=== PATIENT | female | born 2000 | race Caucasian/White ===

== ENCOUNTER → 2022-02-16 | Outpatient (CLI) | payer BC ==
[~2022-02-16] MED LIST: CATHETER FLUSH 10 ML SYR IVP PRN
--- NOTE | 2022-02-16 14:39 | Diagnostic Imaging Report ---
RADIOPHARMACEUTICAL: 5.22mCi Tc-99m Choletec IV INDICATION: Generalized abdominal pain. COMPARISON: None available TECHNIQUE: Anterior dynamic imaging for 1 hour. Additional 60 minutes of imaging was obtained after the patient ingested an 8 ounce can of Ensure. FINDINGS: There is homogenous uptake throughout the liver. The gallbladder is visualized at 25minutes and small bowel at 15minutes. After CCK analog administration, there is abnormal contraction of the gallbladder with abnormally low calculated GBEF at 8%. IMPRESSION: Abnormally low gallbladder ejection fraction calculated to be 8%. This can be seen with biliary dyskinesia or chronic acalculous cholecystitis. No evidence of acute cholecystitis or common duct obstruction. Dictated by: Dictated on workstation # [id number]
== END ==
LOC: CARD 10:00
PROVIDERS: ATTEND Nurse Practitioner Family
DX: R10.11 Right upper quadrant pain (principal); R10.84 Generalized abdominal pain; R11.2 Nausea with vomiting, unspecified
CPT/HCPCS: 78227; A9537

== ENCOUNTER 2022-03-14 05:50 | Outpatient (CLI) | payer BC ==
[~2022-03-14] VITALS: Ht 162.5 cm; Wt 118.0 kg
[2022-03-16] MEDS ORDERED: DICY20TA PO (17:32)
[2022-03-16] MEDS ORDERED: BUPR300T43 PO (17:32)
[2022-03-16] MEDS ORDERED: ONDA-105 PO (17:32)
== END 2022-03-16 17:39 | disposition home or self-care (01) ==
LOC: PREOP 05:50
PROVIDERS: ATTEND Surgery
DX: Z01.818 Encounter for other preprocedural examination (principal)

== ENCOUNTER 2022-03-21 07:03 | Day surgery (SDC) | payer BC ==
[~2022-03-21] VITALS: Ht 162.5 cm; Wt 118.0 kg
[2022-03-21] VITALS (12 sets, daily range): BP systolic 114–140; BP diastolic 61–108
[~2022-03-21 07:03] MED LIST changes: +BUPR300T43 PO; -CATHETER FLUSH 10 ML SYR IVP PRN; +DICY20TA PO; +ONDA-105 PO
[2022-03-21] MEDS ORDERED: ceFAZolin 2 GM IV Premixed 50 ML IV ONE (07:15)
[2022-03-21] MEDS ORDERED: LIDOCAINE/EPI 2% 1:200,00 (XYLOCAINE) 20 ML VIAL ONE (07:23)
[2022-03-21] MEDS ORDERED: INDOCYANINE GREEN 25 MG (ICG) VIAL IV ONE (07:30)
[2022-03-21] MEDS ORDERED: SEVOFLURANE (ULTANE) 15 ML INHAL SOLN ONE ×2 (07:53→08:52)
[2022-03-21] MEDS ORDERED: ONDANSETRON 4 MG/2 ML (SDV) Z0FRAN ONE ×2 (07:53→12:32)
[2022-03-21] MEDS ORDERED: LIDOCAINE PF 2% 5 ML (XYLOCAINE) VIAL ONE (07:53)
[2022-03-21] MEDS ORDERED: MIDAZOLAM 2 MG/2 ML (VERSED) VIAL ONE (07:53)
[2022-03-21] MEDS ORDERED: fentaNYL INJ 100 MCG/2 ML AMP ONE (07:53)
[2022-03-21] MEDS ORDERED: proPOfol 200 MG/20 ML (DIPRIVAN) VIAL IV ONE (07:53)
[2022-03-21] MEDS ORDERED: MIDAZOLAM 2 MG/2 ML (VERSED) VIAL IV ONE (08:00)
[2022-03-21] MEDS ORDERED: LACTATED RINGERS 1,000 ML IV PRN (08:00)
--- NOTE | 2022-03-21 08:15 | Progress Note-Pre Operative ---
Pre-Operative Progress Note H&P Reviewed The H&P was reviewed, patient examined and no changes noted. Time Seen by Provider: 08:06 Date H&P Reviewed: Mar 21, 2022 Time H&P Reviewed: 08:06 Pre-Operative Diagnosis: Biliary Dyskinesia LACY CABELLO DO Mar 21, 2022 08:15
[2022-03-21] MEDS ORDERED: ROCURONIUM 50 MG/5 ML (ZEMURON) VIAL IV ONE (08:52)
[2022-03-21] MEDS ORDERED: NEOSTIGMINE (BLOXIVERZ ) 1 MG/1ML 10 ML VIAL ONE (09:11)
[2022-03-21] MEDS ORDERED: GLYCOPYRROLATE 0.2 MG/ML (ROBINUL) 2 ML VIAL ONE (09:12)
--- NOTE | 2022-03-21 09:18 | Progress Note-Post Operative ---
Post-Operative Progess Note Surgeon (s)/Clinical Training Coordinator (s) Surgeon LACY CABELLO DO Clinical Training Coordinator: Kat Pre-Operative Diagnosis Biliary Dyskinesia Post-Operative Diagnosis same Procedure & Operative Findings Date of Procedure 03/21/22 Procedure Performed/Findings Laparoscopic Cholecystectomy with ICG cholangiogram with Robot COMPLICATIONS: None. PROCEDURE: The patient was taken to the operating suite and was prepped and draped in sterile fashion. A surgical pause was performed. Just superior to the umbilicus, a 12 mm incision was made. Dissection was taken down to the fascia, which was then scored and grasped with a Jacqueline and the abdomen was then entered. A 0 Vicryl suture was placed in a [id number] fashion and a Agosto trocar was placed and secured. Pneumoperitoneum was achieved. Next three 8mm Robotic trochars were placed; one on the right side of umbilicus and two on the left. The robot was then docked and the gallbladder was then grasped and elevated with the far left grasper and taken in the superior direction. Grasped the gallbladder at Chairez's pouch and pulled in the infero-lateral direction. Able to easily visualize the cystic duct and cystic artery; which were then dissected out. Clip was placed on the proximal and two on the distal portion of the cystic duct. Used the ICG to perform cholangiogram and did not see any obstruction, we were well away from the common hepatic and common bile duct. Clips were then placed on proximal portion of the cystic artery and distal portion; both duct and artery were then transected. Hook cautery was used to dissect the gallbladder from the gallbladder fossa achieving hemostasis. The gallbladder was placed in an Endobag and removed through the 12 mm trocar site. The abdomen was then reinspected and there were no signs of active bleeding. Hemostasis had been achieved. The 12 mm fascial defect was then closed with 0 Vicryl suture that had been placed in a [id number] fashion. The abdomen was then desufflated, the trocars were removed. The abdomen was then washed and dried. The skin was then closed using 4-0 Monocryl in a subcuticular fashion. The abdomen was washed and dried and Skin Affix was place over incisions. Patient tolerated the procedure well without any complications and was taken to the recovery room in stable condition. Dr. Stephens assisted on this case helping to make incisions, close incisions, pass instruments and take the gallbladder out. Anesthesia Type GET Estimated Blood Loss Estimated blood loss (mL): scant Specimens/Packing Specimens Removed GB and contents LACY CABELLO DO Mar 21, 2022 09:18
[2022-03-21] MEDS ORDERED: ACHD5005 PO (09:19)
--- NOTE | 2022-03-21 09:20 | Discharge Inst-Surgical ---
Discharge Inst-Surgical Depart Medication/Instructions New, Converted or Re-Newed RX: Transmitted to Pharmacy Patient Instructions Follow up Appt: Make appointment for 1 week. [phone] Instructions: No lifting greater than 20 pounds. No strenuous activity. May shower in 24 hours, no tub bath or soaking. Use incentive spirometer at home as directed. No Smoking Skin/Wound Care: May remove bandages in am. You need to leave the Dermabond on incision it will fall off on it's own. Symptoms to Report: Appetite Changes, Extremity Discoloration, Numbness/Tingling, Swelling Increased, Bleeding Excessive, Eyesight Changes, Pain Increased, Urine Color Change, Constipation(Persistent), Fever over 101 degree F, Pain/Pressure in chest, Urinating Difficulty, Cough Up/Vomit Blood, Heart Beat Irreg/Pounding, Pain/Pressure in jaw, Cramps in feet or legs, Lightheadedness, Pain/Pressure in shoulder, Diarrhea(Persistent), Memory Changes Suddenly, Questions/Concerns, Weight gain consecutive days, Dizziness/Fainting, Nausea/Vomiting, Shortness of Breath, Weight gain over 2 pounds If questions or concerns contact your physician Or seek help at emergency department. Activity Activity as Tolerated: Yes Activity Instructions: Avoid Stress to Incision Driving Instructions: No Driving/Refer to Diet Discharge Diet: Avoid Fatty Foods, Low Fat/Low Cholesterol Diet After 24 Hours: Clear Liquid if Nauseous If Any Problems/Questions/Issu: Contact Your Physician, Go to Emergency Room Skin/Wound Care Infection Signs and Symptoms: Increased Redness, Foul Odor of Wound, Increased Drainage, Skin Itchy or Has a Rash, Increased Swelling, Temperature Above 101 F Wound Care Comment: Heating pad to shoulder or neck tonight for pain Bathing Instructions: Shower Stitches/Nessa/Dermabond Dis: Dermabond Ice Pack: Ice On and Off Site LACY CABELLO DO Mar 21, 2022 09:20
[2022-03-21] MEDS ORDERED: MEPERIDINE (DEMEROL) INJ 50 MG/ML IVP ONE (09:30)
[2022-03-21] MEDS ORDERED: fentaNYL INJ 100 MCG/2 ML AMP IVP ONE (09:30)
[2022-03-21] MEDS ORDERED: ONDANSETRON 4 MG/2 ML (SDV) Z0FRAN IVP PRN (09:30)
[2022-03-21] MEDS ORDERED: morphine INJ 10 MG/ML 1ML (SYR OR VIAL) IVP ONE (09:30)
--- NOTE | 2022-03-21 09:31 | Anesthesia-General Post-Op ---
General Patient Condition Mental Status/LOC: Same as Preop Cardiovascular: Satisfactory Nausea/Vomiting: Absent Respiratory: Satisfactory Pain: Controlled Complications: Absent Post Op Complications Complications None Follow Up Care/Instructions Patient Instructions None needed. Anesthesia/Patient Condition Patient Condition Patient is doing well, no complaints, stable vital signs, no apparent adverse anesthesia problems. No complications reported per nursing. JUSTYN JONES CRNA Mar 21, 2022 09:31
[2022-03-21] MEDS ORDERED: PROMETHAZINE INJ 25 MG/ML (PHENERGAN) AMP ONE (10:12)
[2022-03-21] MEDS ORDERED: PROMETHAZINE INJ 25 MG/ML (PHENERGAN) AMP IVP ONE (10:15)
[2022-03-21] MEDS ORDERED: HYDROcodone/APAP 5 MG/325 MG (LORTAB) TAB PO ONE (12:15)
[2022-03-21] MEDS ORDERED: HYDROcodone/APAP 5 MG/325 MG (LORTAB) TAB ONE (12:22)
[2022-03-21] MEDS ORDERED: ONDANSETRON 4 MG/2 ML (SDV) Z0FRAN IVP ONE (12:45)
== END 2022-03-21 14:50 | disposition home or self-care (01) ==
LOC: SDC 07:03
PROVIDERS: ATTEND Surgery
DX: K82.8 Other specified diseases of gallbladder (principal); K81.1 Chronic cholecystitis
CPT/HCPCS: 84703; 87081

== ENCOUNTER → 2022-04-03 | Outpatient (CLI) | payer BC ==
[~2022-04-03] MED LIST changes: +ACHD5005 PO
[2022-04-03 16:24] LABS: BASOPHILS # (AUTO) 0.1 10^3/uL (0.0-0.1); BASOPHILS % (AUTO) 1 % (0-10); EOSINOPHILS # (AUTO) 0.4 10^3/uL (0.0-0.3); EOSINOPHILS % (AUTO) 4 % (0-10); HEMATOCRIT 43 % (35-52); HEMOGLOBIN 14.3 g/dL (11.5-16.0); LYMPHOCYTES # (AUTO) 2.7 10^3/uL (1.0-4.0); LYMPHOCYTES % (AUTO) 28 % (12-44); MEAN CORPUSCULAR HEMOGLOBIN 31 pg (25-34); MEAN CORPUSCULAR HGB CONC 33 g/dL (32-36); MEAN CORPUSCULAR VOLUME 93 fL (80-99); MEAN PLATELET VOLUME 9.2 fL (9.0-12.2); MONOCYTES # (AUTO) 0.5 10^3/uL (0.0-1.0); MONOCYTES % (AUTO) 5 % (0-12); NEUTROPHILS # (AUTO) 6.1 10^3/uL (1.8-7.8); NEUTROPHILS % (AUTO) 63 % (42-75); PLATELET COUNT 237 10^3/uL (130-400); WHITE BLOOD COUNT 9.7 10^3/uL (4.3-11.0)
[2022-04-03 16:26] LABS: BILIRUBIN,URINE NEGATIVE (NEGATIVE); CLARITY,URINE CLEAR; COLOR,URINE YELLOW; GLUCOSE, URINE (UA) NEGATIVE (NEGATIVE); KETONES,URINE NEGATIVE (NEGATIVE); LEUKOCYTE ESTERASE ,URINE NEGATIVE (NEGATIVE); NITRITE,URINE NEGATIVE (NEGATIVE); PH,URINE 5.5 (5-9); PROTEIN,URINE NEGATIVE (NEGATIVE)
[2022-04-03 16:34] LABS: ALBUMIN 4.5 GM/DL (3.2-4.5)
[2022-04-03 16:35] LABS: POTASSIUM 4.2 MMOL/L (3.6-5.0)
[2022-04-03 16:36] LABS: CALCIUM 9.8 MG/DL (8.5-10.1)
[2022-04-03 16:37] LABS: TOTAL PROTEIN 7.9 GM/DL (6.4-8.2)
[2022-04-03 16:39] LABS: BILIRUBIN,TOTAL 0.6 MG/DL (0.1-1.0)
[2022-04-03 16:41] LABS: CREATININE SERUM 0.82 MG/DL (0.60-1.30)
[2022-04-03 16:52] LABS: BACTERIA,URINE MODERATE /HPF; WBC,URINE 0-2 /HPF
== END ==
LOC: LAB 16:03
PROVIDERS: ATTEND Surgery
DX: R10.32 Left lower quadrant pain (principal)
CPT/HCPCS: 36415; 80053; 81000; 85025; 87088

== ENCOUNTER 2022-05-07 14:06 | Emergency (ER) | payer BC ==
[~2022-05-07] VITALS: Ht 162.5 cm; Wt 117.9 kg
[2022-05-07] MEDS ORDERED: morphine INJ 10 MG/ML 1ML (SYR OR VIAL) IVP STA (14:25)
[2022-05-07] MEDS ORDERED: NS IV 1000 ML 1,000 ML IV STA (14:25)
--- NOTE | 2022-05-07 14:28 | ED Abdominal Pain ---
General Chief Complaint: Abdominal/GI Problems Stated Complaint: ABD PAIN,N/V,DIARRHEA Nursing Triage Note: PT AMB TO [facility] 6 WITH FATHER. PT STATED THAT SHE HAS HAD RIGHT LOWER QUAD PAIN SINCE SATURDAY. PT STATED THAT SHE HAS HAD NAUSEA AND VOMITING OFF AND ON SINCE HER GALLBLADDER SURGERY IN FEBRUARY. Source of Information: Patient Exam Limitations: No Limitations History of Present Illness Date Seen by Provider: May 07, 2022 Time Seen by Provider: 14:12 Initial Comments 21-year-old female with no pertinent past medical history coming in due to right lower quadrant abdominal pain is been going on since Saturday. The pain is constant, moderate, sharp. Does not radiate anywhere. Has associated nausea and nonbloody nonbilious vomiting. Had an episode of nonbloody diarrhea this morning. Did have something to drink today which did not change the pain, otherwise last ate a meal yesterday. Had gallbladder surgery in February and she says the pain was completely different than this. No fever that she knows of. Denies being around anyone sick. She is otherwise denying any other acute complaints. Allergies and Home Medications Allergies Coded Allergies: adhesive tape (Unverified Allergy, Severe, Rash, 03/16/22) Patient Home Medication List Home Medication List Reviewed: Yes Bupropion HCl (Wellbutrin Xl) 300 Mg Tab.er.24h, 300 MG PO DAILY, (Reported) Entered as Reported by: KAREN TAO on 03/16/22 173 Dicyclomine HCl (Dicyclomine HCl) 20 Mg Tablet, 20 MG PO TID, (Reported) Entered as Reported by: KAREN TAO on 03/16/22 173 Hydrocodone Bit/Acetaminophen (HYDROcodone/APAP 5 MG/325 MG TAB) 1 Tab Tab, 1 TAB PO Q8H PRN for PAIN-MODERATE (5-7) Prescribed by: LACY CABELLO on 03/21/22 0919 Ondansetron HCl (Ondansetron HCl) 4 Mg Tablet, 4 MG PO UD, (Reported) Entered as Reported by: KAREN TAO on 03/16/22 173 Promethazine HCl (Promethazine Tablet) 25 Mg Tablet, 25 MG PO Q6H PRN for NAUSEA/VOMITING Prescribed by: MIRANDA CLEMENS on 05/07/22 2232 Review of Systems Review of Systems Constitutional: No fever EENTM: No Blurred Vision Respiratory: Denies Cough Cardiovascular: Denies Chest Pain Gastrointestinal: Abdominal Pain, Diarrhea, Nausea, Vomiting Genitourinary: No Symptoms Reported Musculoskeletal: no symptoms reported Skin: no symptoms reported Psychiatric/Neurological: No Symptoms Reported Endocrine: No Symptoms Reported Hematologic/Lymphatic: No Symptoms Reported All Other Systems Reviewed Negative Unless Noted: Yes Past Drkzkfm-Hweonk-Haznch Hx Patient Social History Tobacco Use?: No Substance use?: No Alcohol Use?: No Pt feels they are or have been: Unable to obtain Immunizations Up To Date Influenza Vaccine Up-to-Date: Yes; Up-to-Date First/Initial COVID19 Vaccinat: 2020 Second COVID19 Vaccination Sven: 2020 Third COVID19 Vaccination Date: 2020 Seasonal Allergies Seasonal Allergies: Yes Past Medical History Surgeries: Yes Tonsillectomy Respiratory: No Cardiac: No Neurological: No Genitourinary: No Gastrointestinal: Yes Gall Bladder Disease Musculoskeletal: No Endocrine: No HEENT: Yes (WEARS GLASSES AND CONTACT LENS) Cancer: No Psychosocial: Yes Anxiety, Depression Integumentary: No Blood Disorders: No Physical Exam Vital Signs Vital Signs - First Documented 05/07/22 14:15 Temp 36.6 Pulse 92 Resp 14 B/P (MAP) 133/83 (100) Pulse Ox 97 O2 Delivery Room Air Capillary Refill : Less Than 3 Seconds Height/Weight/BMI Height: '" Weight: lbs. oz. kg; 44.00 BMI Method: General Appearance: WD/WN, no apparent distress HEENT: PERRL/EOMI, normal ENT inspection, pharynx normal Neck: non-tender, full range of motion, supple, normal inspection Respiratory: chest non-tender, lungs clear, normal breath sounds, no respiratory distress, no accessory muscle use Cardiovascular: regular rate, rhythm, no edema, no murmur Gastrointestinal: normal bowel sounds, soft; No distended, No guarding, No rebound; tenderness Extremities: normal range of motion, non-tender, normal inspection, no pedal edema, no calf tenderness, normal capillary refill Back: normal inspection, no CVA tenderness Neurologic/Psychiatric: no motor/sensory deficits, alert, normal mood/affect Skin: normal color, warm/dry Lymphatic: no adenopathy Progress/Results/Core Measures Results/Orders Lab Results Laboratory Tests Test 8/8/22 14:45 Range/Units White Blood Count 9.1 4.3-11.0 10^3/uL Red Blood Count 4.61 3.80-5.11 10^6/uL Hemoglobin 14.3 11.5-16.0 g/dL Hematocrit 43 35-52 % Mean Corpuscular Volume 93 80-99 fL Mean Corpuscular Hemoglobin 31 25-34 pg Mean Corpuscular Hemoglobin Concent 33 32-36 g/dL Red Cell Distribution Width 12.3 10.0-14.5 % Platelet Count 254 130-400 10^3/uL Mean Platelet Volume 9.0 9.0-12.2 fL Immature Granulocyte % (Auto) 0 % Neutrophils (%) (Auto) 67 42-75 % Lymphocytes (%) (Auto) 23 12-44 % Monocytes (%) (Auto) 5 0-12 % Eosinophils (%) (Auto) 3 0-10 % Basophils (%) (Auto) 1 0-10 % Neutrophils # (Auto) 6.1 1.8-7.8 10^3/uL Lymphocytes # (Auto) 2.1 1.0-4.0 10^3/uL Monocytes # (Auto) 0.5 0.0-1.0 10^3/uL Eosinophils # (Auto) 0.3 0.0-0.3 10^3/uL Basophils # (Auto) 0.1 0.0-0.1 10^3/uL Immature Granulocyte # (Auto) 0.0 0.0-0.1 10^3/uL Sodium Level 141 135-145 MMOL/L Potassium Level 4.1 3.6-5.0 MMOL/L Chloride Level 106 98-107 MMOL/L Carbon Dioxide Level 28 21-32 MMOL/L Anion Gap 7 5-14 MMOL/L Blood Urea Nitrogen 8 7-18 MG/DL Creatinine 0.82 0.60-1.30 MG/DL Estimat Glomerular Filtration Rate 105 BUN/Creatinine Ratio 10 Glucose Level 87 70-105 MG/DL Calcium Level 9.5 8.5-10.1 MG/DL Corrected Calcium 9.2 8.5-10.1 MG/DL Total Bilirubin 0.5 0.1-1.0 MG/DL Aspartate Amino Transf (AST/SGOT) 14 5-34 U/L Alanine Aminotransferase (ALT/SGPT) 23 0-55 U/L Alkaline Phosphatase 54 40-136 U/L Total Protein 7.8 6.4-8.2 GM/DL Albumin 4.4 3.2-4.5 GM/DL Lipase 23 8-78 U/L My Orders Orders - MIRANDA CLEMENS MD Urine Bedside (05/07/22 14:25) Cbc With Automated Diff (05/07/22 14:25) Comprehensive Metabolic Panel (05/07/22 14:25) Ct Abd/Pelv W (Appendicitis) (05/07/22 14:25) Ed Iv/Invasive Line Start (05/07/22 14:25) Lipase (05/07/22 14:25) Acetaminophen Tablet (Tylenol Tablet) (05/07/22 14:30) Morphine Injection (Morphine Injection (05/07/22 14:25) Ondansetron Injection (Zofran Injectio (05/07/22 14:30) Ns Iv 1000 Ml (Sodium Chloride 0.9%) (05/07/22 14:25) Iohexol Injection (Omnipaque 350 Mg/Ml 1 (05/07/22 15:30) Ns (Ivpb) (Sodium Chloride 0.9% Ivpb Bag (05/07/22 15:30) Ketorolac Injection (Toradol Injection) (05/07/22 15:45) Medications Given in ED Current Medications Medications Dose Ordered Sig/Miguel Route Start Time Stop Time Status Last Admin Dose Admin Acetaminophen 1,000 mg ONCE ONCE PO 05/07/22 14:30 05/07/22 14:31 DC 05/07/22 14:54 1,000 MG Iohexol 100 ml ONCE ONCE IV 05/07/22 15:30 05/07/22 15:31 DC 05/07/22 15:29 100 ML Ondansetron HCl 4 mg ONCE ONCE IVP 05/07/22 14:30 05/07/22 14:31 DC 05/07/22 14:57 4 MG Sodium Chloride 100 ml ONCE ONCE IV 05/07/22 15:30 05/07/22 15:31 DC 05/07/22 15:30 80 ML Vital Signs/I&O 05/07/22 14:15 Temp 36.6 Pulse 92 Resp 14 B/P (MAP) 133/83 (100) Pulse Ox 97 O2 Delivery Room Air Blood Pressure Mean: 100 Progress Progress Note : Progress Note 21-year-old female with above history coming in due to right lower quadrant abdominal pain. ABCs were intact and vitals were stable on presentation. She did have tenderness on exam but no signs of peritonitis. An IV was placed and basic labs were obtained including LFTs. These were unremarkable. test negative. She had a urinalysis at the clinic earlier today and they said it was negative for infection. CT abdomen pelvis negative for acute abnormalities. While working her up she did get IV morphine and Zofran as well as a liter of IV fluids for her symptoms. She is feeling better. I believe she is stable for discharge with outpatient follow-up. She was sent home with strict return precautions Diagnostic Imaging Diagonstic Imaging: CT Plain Films/CT/US/NM/MRI: abdomen, pelvis Comments NAME: ZAIN GOMEZ [facility] REC#: [id number] PT STATUS: REG ER : 2000 PHYSICIAN: MIRANDA CLEMENS MD ADMIT DATE: 05/07/22/ER Draft Date of Exam:05/07/22 CT ABD/PELV W (APPENDICITIS) PROCEDURE: CT abdomen and pelvis with contrast, rule out appendicitis. TECHNIQUE: Multiple contiguous axial images were obtained through the abdomen and pelvis after the administration of intravenous contrast. All CT scans use one or more of the following dose optimizing techniques: automated exposure control, MA and/or KvP adjustment based on patient size and exam type or iterative reconstruction. INDICATION: Right lower quadrant pain with nausea and vomiting. COMPARISON: No prior studies are available for comparison. Lung bases are clear. The liver is unremarkable. Gallbladder appears to be surgically absent. There is no biliary ductal dilatation. The pancreas and spleen are unremarkable. No adrenal mass is detected. No renal calculi or evidence of hydronephrosis is detected. The bowel loops are normal caliber. The appendix is visualized in the right lower quadrant and appears unremarkable. There is no CT evidence of acute appendicitis. No free fluid or fluid collection is seen. No inflammatory changes are identified. The bladder and uterus are unremarkable. Ovaries are unremarkable. IMPRESSION: Unremarkable CT of the abdomen and pelvis. There is no evidence of acute appendicitis or urinary tract obstruction. Dictated on workstation # [id number] Dict: 05/07/22 1541 Trans: 05/07/22 1548 ACB [id number] Interpreted by: SKYLER FIGUEROA MD Electronically signed by: Departure Impression Primary Impression: Vomiting and diarrhea Disposition: 01 HOME, SELF-CARE Condition: Stable Departure-Patient Inst. Decision time for Depature: 15:51 Referrals: NO,LOCAL PHYSICIAN (PCP) Primary Care Physician FIORELLA SYED APRN (Family) Primary Care Physician Patient Instructions: Diarrhea, Adult ED, Nausea and Vomiting, Adult ED Add. Discharge Instructions: Your labs look good and your CT is normal with no evidence of appendicitis or any other abnormality. You likely have something viral causing vomiting and diarrhea. This typically takes 3 to 5 days to pass. Nausea medicines were sent to your pharmacy. Focus on clear liquids and do not worry about eating for the next couple days until you are feeling better Scripts Promethazine HCl (Promethazine Tablet) 25 Mg Tablet 25 MG PO Q6H PRN for NAUSEA/VOMITING for 5 Days, #20 TAB Prov: MIRANDA CLEMENS MD 05/07/22 Work/School Note: Work Release Form Date Seen in the Emergency Department: May 07, 2022 Return to Work: May 08, 2022 Restrictions: Return-No Vomiting(24hrs) MIRANDA CLEMENS MD May 07, 2022 14:28
[2022-05-07] MEDS ORDERED: ONDANSETRON 4 MG/2 ML (SDV) Z0FRAN IVP ONE (14:30)
[2022-05-07] MEDS ORDERED: ACETAMINOPHEN 500 MG TAB (TYLENOL) PO ONE (14:30)
[2022-05-07 14:52] LABS: BASOPHILS # (AUTO) 0.1 10^3/uL (0.0-0.1); BASOPHILS % (AUTO) 1 % (0-10); EOSINOPHILS # (AUTO) 0.3 10^3/uL (0.0-0.3); EOSINOPHILS % (AUTO) 3 % (0-10); HEMATOCRIT 43 % (35-52); HEMOGLOBIN 14.3 g/dL (11.5-16.0); LYMPHOCYTES # (AUTO) 2.1 10^3/uL (1.0-4.0); LYMPHOCYTES % (AUTO) 23 % (12-44); MEAN CORPUSCULAR HEMOGLOBIN 31 pg (25-34); MEAN CORPUSCULAR HGB CONC 33 g/dL (32-36); MEAN CORPUSCULAR VOLUME 93 fL (80-99); MONOCYTES # (AUTO) 0.5 10^3/uL (0.0-1.0); MONOCYTES % (AUTO) 5 % (0-12); NEUTROPHILS # (AUTO) 6.1 10^3/uL (1.8-7.8); NEUTROPHILS % (AUTO) 67 % (42-75); PLATELET COUNT 254 10^3/uL (130-400); WHITE BLOOD COUNT 9.1 10^3/uL (4.3-11.0)
[2022-05-07 15:16] LABS: ALBUMIN 4.4 GM/DL (3.2-4.5)
[2022-05-07 15:17] LABS: POTASSIUM 4.1 MMOL/L (3.6-5.0)
[2022-05-07 15:18] LABS: CALCIUM 9.5 MG/DL (8.5-10.1)
[2022-05-07 15:19] LABS: TOTAL PROTEIN 7.8 GM/DL (6.4-8.2)
[2022-05-07 15:21] LABS: BILIRUBIN,TOTAL 0.5 MG/DL (0.1-1.0)
[2022-05-07 15:23] LABS: CREATININE SERUM 0.82 MG/DL (0.60-1.30)
[2022-05-07] MEDS ORDERED: IOHEXOL 350 MG/ML 100 ML (OMNIPAQUE 350) VIAL IV ONE (15:30)
[2022-05-07] MEDS ORDERED: NS 100 ML (IVPB) BAG IV ONE (15:30)
[2022-05-07] MEDS ORDERED: KETOROLAC 30 MG/ML VIAL IVP ONE (15:45)
--- NOTE | 2022-05-07 15:48 | Diagnostic Imaging Report ---
PROCEDURE: CT abdomen and pelvis with contrast, rule out appendicitis. TECHNIQUE: Multiple contiguous axial images were obtained through the abdomen and pelvis after the administration of intravenous contrast. All CT scans use one or more of the following dose optimizing techniques: automated exposure control, MA and/or KvP adjustment based on patient size and exam type or iterative reconstruction. INDICATION: Right lower quadrant pain with nausea and vomiting. COMPARISON: No prior studies are available for comparison. Lung bases are clear. The liver is unremarkable. Gallbladder appears to be surgically absent. There is no biliary ductal dilatation. The pancreas and spleen are unremarkable. No adrenal mass is detected. No renal calculi or evidence of hydronephrosis is detected. The bowel loops are normal caliber. The appendix is visualized in the right lower quadrant and appears unremarkable. There is no CT evidence of acute appendicitis. No free fluid or fluid collection is seen. No inflammatory changes are identified. The bladder and uterus are unremarkable. Ovaries are unremarkable. IMPRESSION: Unremarkable CT of the abdomen and pelvis. There is no evidence of acute appendicitis or urinary tract obstruction. Dictated by: Dictated on workstation # [id number]
[2022-05-07] MEDS ORDERED: PROM25TA14 PO (15:52)
[2022-05-07 16:10] VITALS: BP 107/78
== END 2022-05-07 16:10 | disposition home or self-care (01) ==
LOC: EDUNIT# 14:06 → ER 14:08
DX: R11.2 Nausea with vomiting, unspecified (principal); R19.7 Diarrhea, unspecified; R10.32 Left lower quadrant pain; Z32.02 Encounter for pregnancy test, result negative
CPT/HCPCS: 36415; 74177; 80053; 83690; 84703; 85025

== ENCOUNTER 2022-08-15 10:14 | Emergency (ER) | payer BC ==
[~2022-08-15] VITALS: Ht 162 cm; Wt 123.0 kg
[~2022-08-15 10:14] MED LIST changes: +PROM25TA14 PO
--- NOTE | 2022-08-15 11:07 | ED Psychosocial ---
General Chief Complaint: Psych/Social Disorder Stated Complaint: PSYCH EVAL Nursing Triage Note: Patient has arrived to ER with cc of years of depression and for months feeling suicidal. She reports that she has thought about wrecking her car for several months - the thought are becoming more persistiance. Source: patient Exam Limitations: no limitations History of Present Illness Date Seen by Provider: Aug 15, 2022 Time Seen by Provider: 10:50 Allergies and Home Medications Allergies Coded Allergies: adhesive tape (Unverified Allergy, Severe, Rash, 03/16/22) Patient Home Medication List Home Medication List Reviewed: Yes Bupropion HCl (Wellbutrin Xl) 300 Mg Tab.er.24h, 300 MG PO DAILY, (Reported) Entered as Reported by: KAREN TAO on 03/16/22 1732 Dicyclomine HCl (Dicyclomine HCl) 20 Mg Tablet, 20 MG PO TID, (Reported) Entered as Reported by: KAREN TAO on 03/16/22 1732 Hydrocodone Bit/Acetaminophen (HYDROcodone/APAP 5 MG/325 MG TAB) 1 Tab Tab, 1 TAB PO Q8H PRN for PAIN-MODERATE (5-7) Prescribed by: LACY CABELLO on 03/21/22 0919 Ondansetron HCl (Ondansetron HCl) 4 Mg Tablet, 4 MG PO UD, (Reported) Entered as Reported by: KAREN TAO on 03/16/22 1732 Promethazine HCl (Promethazine Tablet) 25 Mg Tablet, 25 MG PO Q6H PRN for NAUSEA/VOMITING Prescribed by: MIRANDA CLEMENS on 05/07/22 1552 Review of Systems Constitutional: no symptoms reported EENTM: no symptoms reported Respiratory: no symptoms reported Cardiovascular: no symptoms reported Gastrointestinal: no symptoms reported Genitourinary: no symptoms reported Musculoskeletal: no symptoms reported Skin: no symptoms reported Psychiatric/Neurological: Depressed Past Ekumxnr-Rcrkpq-Luxjpt Hx Patient Social History Tobacco Use?: No Use of E-Cig and/or Vaping dev: No Substance use?: No Alcohol Use?: No Immunizations Up To Date First/Initial COVID19 Vaccinat: 2020 Second COVID19 Vaccination Sven: 2020 Third COVID19 Vaccination Date: 2020 Seasonal Allergies Seasonal Allergies: Yes Past Medical History Surgeries: Yes Tonsillectomy Respiratory: No Cardiac: No Neurological: No Genitourinary: No Gastrointestinal: Yes Gall Bladder Disease Musculoskeletal: No Endocrine: No HEENT: Yes (WEARS GLASSES AND CONTACT LENS) Cancer: No Psychosocial: Yes Anxiety, Depression Integumentary: No Blood Disorders: No Family Medical History Reviewed Nursing Family Hx No Pertinent Family Hx Physical Exam Vital Signs - First Documented 08/15/22 08/15/22 10:52 20:00 Temp 36.7 Pulse 93 Resp 16 B/P (MAP) 129/84 (99) Pulse Ox 99 O2 Delivery Room Air Capillary Refill : Height, Weight, BMI Height: '" Weight: lbs. oz. kg; 46.00 BMI Method: General Appearance: WD/WN HEENT: PERRL/EOMI, normal ENT inspection, pharynx normal Neck: non-tender, supple, normal inspection Respiratory: chest non-tender, lungs clear, normal breath sounds, no respiratory distress, no accessory muscle use Cardiovascular: regular rate, rhythm, no edema, no gallop, no JVD, no murmur Gastrointestinal: normal bowel sounds, non tender, soft, no organomegaly, no pulsatile mass Extremities: normal range of motion, non-tender, normal inspection, no pedal edema, no calf tenderness Neurologic/Psychiatric: alert, normal mood/affect, oriented x 3 Appearance/Memory: appropriate appearance, appropriate insight Behavior/Eye Contact: cooperative, good eye contact, normal speech Thoughts/Hallucinations: normal thought pattern Skin: normal color, warm/dry Lymphatic: no adenopathy Progress/Results/Core Measures Results/Orders Lab Results Laboratory Tests Test 08/15/22 10:38 08/15/22 15:43 Range/Units White Blood Count 10.4 4.3-11.0 10^3/uL Red Blood Count 4.64 3.80-5.11 10^6/uL Hemoglobin 14.5 11.5-16.0 g/dL Hematocrit 43 35-52 % Mean Corpuscular Volume 92 80-99 fL Mean Corpuscular Hemoglobin 31 25-34 pg Mean Corpuscular Hemoglobin Concent 34 32-36 g/dL Red Cell Distribution Width 12.3 10.0-14.5 % Platelet Count 267 130-400 10^3/uL Mean Platelet Volume 9.4 9.0-12.2 fL Immature Granulocyte % (Auto) 0 % Neutrophils (%) (Auto) 72 42-75 % Lymphocytes (%) (Auto) 18 12-44 % Monocytes (%) (Auto) 6 0-12 % Eosinophils (%) (Auto) 4 0-10 % Basophils (%) (Auto) 1 0-10 % Neutrophils # (Auto) 7.5 1.8-7.8 10^3/uL Lymphocytes # (Auto) 1.8 1.0-4.0 10^3/uL Monocytes # (Auto) 0.6 0.0-1.0 10^3/uL Eosinophils # (Auto) 0.4 H 0.0-0.3 10^3/uL Basophils # (Auto) 0.1 0.0-0.1 10^3/uL Immature Granulocyte # (Auto) 0.0 0.0-0.1 10^3/uL Urine Color YELLOW Urine Clarity SL CLOUDY Urine pH 6.5 5-9 Urine Specific [place] 1.025 H 1.016-1.022 Urine Protein NEGATIVE NEGATIVE Urine Glucose (UA) NEGATIVE NEGATIVE Urine Ketones NEGATIVE NEGATIVE Urine Nitrite NEGATIVE NEGATIVE Urine Bilirubin NEGATIVE NEGATIVE Urine Urobilinogen 0.2 < = 1.0 MG/DL Urine Leukocyte Esterase NEGATIVE NEGATIVE Urine RBC (Auto) TRACE-I H NEGATIVE Urine RBC NONE /HPF Urine WBC RARE /HPF Urine Squamous Epithelial Cells 5-10 /HPF Urine Crystals NONE /LPF Urine Bacteria TRACE /HPF Urine Casts NONE /LPF Urine Mucus NEGATIVE /LPF Urine Culture Indicated NO Urine Test NEGATIVE NEGATIVE Sodium Level 138 135-145 MMOL/L Potassium Level 4.5 3.6-5.0 MMOL/L Chloride Level 102 98-107 MMOL/L Carbon Dioxide Level 24 21-32 MMOL/L Anion Gap 12 5-14 MMOL/L Blood Urea Nitrogen 15 7-18 MG/DL Creatinine 0.75 0.60-1.30 MG/DL Estimat Glomerular Filtration Rate 116 BUN/Creatinine Ratio 20 Glucose Level 94 70-105 MG/DL Calcium Level 9.4 8.5-10.1 MG/DL Corrected Calcium 8.5-10.1 MG/DL Total Bilirubin 0.3 0.1-1.0 MG/DL Aspartate Amino Transf (AST/SGOT) 15 5-34 U/L Alanine Aminotransferase (ALT/SGPT) 16 0-55 U/L Alkaline Phosphatase 68 40-136 U/L Total Protein 8.0 6.4-8.2 GM/DL Albumin 4.6 H 3.2-4.5 GM/DL Salicylates Level < 0.3 L 5.0-20.0 MG/DL Urine Opiates Screen NEGATIVE NEGATIVE Urine Oxycodone Screen NEGATIVE NEGATIVE Urine Methadone Screen NEGATIVE NEGATIVE Urine Propoxyphene Screen NEGATIVE NEGATIVE Acetaminophen Level < 10 L 10-30 UG/ML Urine Barbiturates Screen NEGATIVE NEGATIVE Ur Tricyclic Antidepressants Screen NEGATIVE NEGATIVE Urine Phencyclidine Screen NEGATIVE NEGATIVE Urine Amphetamines Screen NEGATIVE NEGATIVE Urine Methamphetamines Screen NEGATIVE NEGATIVE Urine Benzodiazepines Screen NEGATIVE NEGATIVE Urine Cocaine Screen NEGATIVE NEGATIVE Urine Cannabinoids Screen NEGATIVE NEGATIVE Serum Alcohol < 10 <10 MG/DL SARS-CoV-2 RNA (RT-PCR) Not Detected Not Detecte My Orders Orders - YFN RAE DO Ua Culture If Indicated (08/15/22 11:04) Cbc With Automated Diff (08/15/22 11:04) Comprehensive Metabolic Panel (08/15/22 11:04) Alcohol (08/15/22 11:04) Drug Screen Stat (Urine) (08/15/22 11:04) Acetaminophen (08/15/22 11:04) Salicylate (08/15/22 11:04) Ekg Tracing (08/15/22 11:04) Hcg,Qualitative Urine (08/15/22 13:24) Acetaminophen Tablet (Tylenol Tablet) (08/15/22 13:45) Covid 19 Inhouse Test (08/15/22 13:47) Isolation Central Supply Req (08/15/22 13:47) Medications Given in ED Current Medications Medications Dose Ordered Sig/Miguel Route Start Time Stop Time Status Last Admin Dose Admin Acetaminophen 1,000 mg ONCE ONCE PO 08/15/22 13:45 08/15/22 13:46 DC 08/15/22 13:52 1,000 MG Vital Signs/I&O 08/15/22 08/15/22 10:52 20:00 Temp 36.7 Pulse 93 69 Resp 16 16 B/P (MAP) 129/84 (99) 106/70 (82) Pulse Ox 99 98 O2 Delivery Room Air Blood Pressure Mean: 99 Departure Communication (Admissions) Patient has been calm and cooperative during emergency department stay. It was delayed finding placement however eventually she is transferred to [facility] voluntarily for further evaluation and treatment. Impression Primary Impression: Depression Qualified Codes: F32.A - Depression, unspecified Disposition: 02 XFER SHT-TRM HOSP Condition: Stable Admissions Decision to Admit Reason: Admit from ER (General) Departure-Patient Inst. Referrals: FIORELLA SYED APRN (PCP) Primary Care Physician [facility] (Family) Primary Care Physician Add. Discharge Instructions: All discharge instructions reviewed with patient and/or family. Voiced understanding. YFN RAE DO Aug 15, 2022 11:07
[2022-08-15 11:13] LABS: BASOPHILS # (AUTO) 0.1 10^3/uL (0.0-0.1); BASOPHILS % (AUTO) 1 % (0-10); BILIRUBIN,URINE NEGATIVE (NEGATIVE); CLARITY,URINE SL CLOUDY; COLOR,URINE YELLOW; EOSINOPHILS # (AUTO) 0.4 10^3/uL (0.0-0.3); EOSINOPHILS % (AUTO) 4 % (0-10); GLUCOSE, URINE (UA) NEGATIVE (NEGATIVE); HEMATOCRIT 43 % (35-52); HEMOGLOBIN 14.5 g/dL (11.5-16.0); KETONES,URINE NEGATIVE (NEGATIVE); LEUKOCYTE ESTERASE ,URINE NEGATIVE (NEGATIVE); LYMPHOCYTES # (AUTO) 1.8 10^3/uL (1.0-4.0); LYMPHOCYTES % (AUTO) 18 % (12-44); MEAN CORPUSCULAR HEMOGLOBIN 31 pg (25-34); MEAN CORPUSCULAR HGB CONC 34 g/dL (32-36); MEAN CORPUSCULAR VOLUME 92 fL (80-99); MEAN PLATELET VOLUME 9.4 fL (9.0-12.2); MONOCYTES # (AUTO) 0.6 10^3/uL (0.0-1.0); MONOCYTES % (AUTO) 6 % (0-12); NEUTROPHILS # (AUTO) 7.5 10^3/uL (1.8-7.8); NEUTROPHILS % (AUTO) 72 % (42-75); NITRITE,URINE NEGATIVE (NEGATIVE); PH,URINE 6.5 (5-9); PLATELET COUNT 267 10^3/uL (130-400); PROTEIN,URINE NEGATIVE (NEGATIVE); WHITE BLOOD COUNT 10.4 10^3/uL (4.3-11.0)
[2022-08-15 11:20] LABS: BACTERIA,URINE TRACE /HPF; WBC,URINE RARE /HPF
[2022-08-15 11:31] LABS: AMPHETAMINE SCREEN, URINE NEGATIVE (NEGATIVE); BARBITURATE SCREEN URINE NEGATIVE (NEGATIVE); BENZODIAZEPINES SCREEN URINE NEGATIVE (NEGATIVE); CANNABINOID SCREEN, URINE NEGATIVE (NEGATIVE); COCAINE SCREEN URINE NEGATIVE (NEGATIVE); METHADONE STAT NEGATIVE (NEGATIVE); OPIATE SCREEN URINE NEGATIVE (NEGATIVE); OXYCODONE STAT NEGATIVE (NEGATIVE); PROPOXYPHENE STAT NEGATIVE (NEGATIVE); TRICYCLIC ANTIDEPRESSANTS SCRE NEGATIVE (NEGATIVE)
[2022-08-15 11:39] LABS: POTASSIUM 4.5 MMOL/L (3.6-5.0); SODIUM 138 MMOL/L (135-145)
[2022-08-15 11:40] LABS: ALANINE AMINOTRANSFERASE 16 U/L (0-55); ALBUMIN 4.6 GM/DL (3.2-4.5); ALKALINE PHOSPHATASE 68 U/L (40-136); BILIRUBIN,TOTAL 0.3 MG/DL (0.1-1.0); BUN/CREATININE RATIO 20; CALCIUM 9.4 MG/DL (8.5-10.1); CARBON DIOXIDE 24 MMOL/L (21-32); CHLORIDE 102 MMOL/L (98-107); CREATININE SERUM 0.75 MG/DL (0.60-1.30); GFR ESTIMATED 116; GLUCOSE 94 MG/DL (70-105); SALICYLATE < 0.3 MG/DL (5.0-20.0)
[2022-08-15 11:41] LABS: ACETAMINOPHEN < 10 UG/ML (10-30)
[2022-08-15] MEDS ORDERED: ACETAMINOPHEN 500 MG TAB (TYLENOL) PO ONE (13:45)
[2022-08-15 21:35] VITALS: BP 106/70
== END 2022-08-15 21:36 | disposition short-term general hospital (02) ==
LOC: EDUNIT# 10:14 → ER FS 10:15
DX: F32.A Depression, unspecified (principal); Z20.822 Contact with and (suspected) exposure to COVID-19
CPT/HCPCS: 36415; 80053; 80306; 81000; 84703 ×2; 85025; 87636; 93005; 99284; G0480 ×3; 80320; 80329

== ENCOUNTER 2023-05-12 09:58 | Emergency (ER) | payer BC ==
[~2023-05-12] VITALS: Ht 162 cm; Wt 140.0 kg
[2023-05-12] MEDS ORDERED: KETOROLAC INJ 15 MG/ML VIAL IVP STA (10:12)
[2023-05-12] MEDS ORDERED: ONDANSETRON 4 MG/2 ML (SDV) Z0FRAN IVP STA (10:12)
[2023-05-12] MEDS ORDERED: NS IV 1000 ML 1,000 ML IV STA (10:12)
[2023-05-12 10:14] VITALS: BP 137/32
[2023-05-12 10:15] LABS: BASOPHILS # (AUTO) 0.1 10^3/uL (0.0-0.1); BASOPHILS % (AUTO) 1 % (0-10); EOSINOPHILS # (AUTO) 0.3 10^3/uL (0.0-0.3); EOSINOPHILS % (AUTO) 2 % (0-10); HEMATOCRIT 45 % (35-52); HEMOGLOBIN 14.9 g/dL (11.5-16.0); LYMPHOCYTES # (AUTO) 1.1 10^3/uL (1.0-4.0); LYMPHOCYTES % (AUTO) 9 % (12-44); MEAN CORPUSCULAR HEMOGLOBIN 31 pg (25-34); MEAN CORPUSCULAR HGB CONC 33 g/dL (32-36); MEAN CORPUSCULAR VOLUME 92 fL (80-99); MEAN PLATELET VOLUME 8.7 fL (9.0-12.2); MONOCYTES # (AUTO) 0.8 10^3/uL (0.0-1.0); MONOCYTES % (AUTO) 6 % (0-12); NEUTROPHILS # (AUTO) 10.6 10^3/uL (1.8-7.8); NEUTROPHILS % (AUTO) 82 % (42-75); PLATELET COUNT 254 10^3/uL (130-400); WHITE BLOOD COUNT 12.8 10^3/uL (4.3-11.0)
[2023-05-12 10:18] LABS: BILIRUBIN,URINE NEGATIVE (NEGATIVE); CLARITY,URINE CLEAR; COLOR,URINE YELLOW; GLUCOSE, URINE (UA) NEGATIVE (NEGATIVE); KETONES,URINE NEGATIVE (NEGATIVE); LEUKOCYTE ESTERASE ,URINE NEGATIVE (NEGATIVE); NITRITE,URINE NEGATIVE (NEGATIVE); PROTEIN,URINE NEGATIVE (NEGATIVE)
--- NOTE | 2023-05-12 10:19 | ED GI ---
General Chief Complaint: Abdominal/GI Problems Stated Complaint: LRQ PAIN; DIARRHEA; NAUSEA Source of Information: Patient, Old Records History of Present Illness Date Seen by Provider: May 12, 2023 Time Seen by Provider: 10:00 Initial Comments 22-year-old female presenting again with abdominal pain, nausea, diarrhea, vomiting. She states that she has had nausea vomiting and diarrhea ever since she had her gallbladder out over a year ago. She has had right lower quadrant and right flank pain intermittently since then as well. She has been evaluated for this previously. She comes in today because she states that her pain is so severe she cannot manage it anymore. Her symptoms this episode have been going on for over a week. She was seen last weekend at the [facility] clinic and states that he had a COVID test and urine test and they were both negative. She has not tried to check back with the clinic during the week. She states she has had some chills but no fever. She denies pain or burning with urination. She last had diarrhea earlier today. Timing/Duration: 1 Week Severity/Quality: Moderate, Sharp Location: RLQ, Flank (Right) Activities at Onset: None Modifying Factors: Worsens With Movement, Worsens With Palpation Associated Symptoms: No Back Pain, No Chest Pain, No Diaphoresis, No Fever/Chills, No Fatigue, No Headache, No Heartburn; Nausea/Vomiting; No Rash, No Shortness of Air, No Swelling/Mass in Abdomen, No Syncope, No Weakness Allergies and Home Medications Allergies Coded Allergies: adhesive tape (Unverified Allergy, Severe, Rash, 03/16/22) Patient Home Medication List Home Medication List Reviewed: Yes Bupropion HCl (Wellbutrin Xl) 300 Mg Tab.er.24h, 300 MG PO DAILY, (Reported) Entered as Reported by: KAREN TAO on 03/16/22 173 Dicyclomine HCl (Dicyclomine HCl) 20 Mg Tablet, 20 MG PO TID, (Reported) Entered as Reported by: KAREN TAO on 03/16/22 173 Dicyclomine HCl (Dicyclomine HCl) 10 Mg Capsule, 10 MG PO Q6H PRN for ABDOMINAL PAIN Prescribed by: EFRAÍN LEON on 05/12/23 1127 Hydrocodone Bit/Acetaminophen (HYDROcodone/APAP 5 MG/325 MG TAB) 1 Tab Tab, 1 TAB PO Q8H PRN for PAIN-MODERATE (5-7) Prescribed by: LACY CABELLO on 03/21/22 0919 Metoclopramide HCl (Metoclopramide HCl) 5 Mg Tablet, 5 MG PO Q8H PRN for NAUSEA/VOMITING Prescribed by: EFRAÍN LEON on 05/12/23 1127 Ondansetron HCl (Ondansetron HCl) 4 Mg Tablet, 4 MG PO UD, (Reported) Entered as Reported by: KAREN TAO on 03/16/22 1732 Promethazine HCl (Promethazine Tablet) 25 Mg Tablet, 25 MG PO Q6H PRN for NAUSEA/VOMITING Prescribed by: MIRANDA CLEMENS on 05/07/22 1552 Review of Systems Review of Systems Constitutional: chills; No fever EENTM: No Symptoms Reported Respiratory: No Symptoms Reported Cardiovascular: Palpitations Gastrointestinal: See HPI Genitourinary: Denies Burning, Denies Discharge; Flank Pain (right side) Musculoskeletal: no symptoms reported Skin: no symptoms reported Psychiatric/Neurological: No Symptoms Reported Endocrine: No Symptoms Reported Past Jnpaaox-Xwcwbq-Ahenoy Hx Patient Social History Tobacco Use?: No Use of E-Cig and/or Vaping dev: No Substance use?: No Alcohol Use?: No Immunizations Up To Date First/Initial COVID19 Vaccinat: 2020 Second COVID19 Vaccination Sven: 2020 Third COVID19 Vaccination Date: 2020 Seasonal Allergies Seasonal Allergies: Yes Past Medical History Surgery/Hospitalization HX: Cholecystectomy Surgeries: Yes Tonsillectomy Respiratory: No Cardiac: No Neurological: No Genitourinary: No Gastrointestinal: Yes Gall Bladder Disease Musculoskeletal: No Endocrine: No HEENT: Yes (WEARS GLASSES AND CONTACT LENS) Cancer: No Psychosocial: Yes Anxiety, Depression Integumentary: No Blood Disorders: No Family Medical History No Pertinent Family Hx Physical Exam Vital Signs Vital Signs - First Documented 05/12/23 10:14 Temp 36.8 Pulse 108 Resp 16 B/P (MAP) 137/32 (67) Pulse Ox 100 O2 Delivery Room Air Capillary Refill : Height/Weight/BMI Height: '" Weight: lbs. oz. 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, alert, oriented x 3 Skin: normal color, warm/dry Progress/Results/Core Measures Results/Orders Lab Results Laboratory Tests Test 05/12/23 10:03 05/12/23 10:09 Range/Units Urine Color YELLOW Urine Clarity CLEAR Urine pH 6.0 5-9 Urine Specific [place] 1.010 L 1.016-1.022 Urine Protein NEGATIVE NEGATIVE Urine Glucose (UA) NEGATIVE NEGATIVE Urine Ketones NEGATIVE NEGATIVE Urine Nitrite NEGATIVE NEGATIVE Urine Bilirubin NEGATIVE NEGATIVE Urine Urobilinogen 0.2 < = 1.0 MG/DL Urine Leukocyte Esterase NEGATIVE NEGATIVE Urine RBC (Auto) NEGATIVE NEGATIVE Urine RBC 0-2 /HPF Urine WBC NONE /HPF Urine Squamous Epithelial Cells 25-50 H /HPF Urine Crystals NONE /LPF Urine Bacteria TRACE /HPF Urine Casts NONE /LPF Urine Mucus NEGATIVE /LPF Urine Culture Indicated NO White Blood Count 12.8 H 4.3-11.0 10^3/uL Red Blood Count 4.87 3.80-5.11 10^6/uL Hemoglobin 14.9 11.5-16.0 g/dL Hematocrit 45 35-52 % Mean Corpuscular Volume 92 80-99 fL Mean Corpuscular Hemoglobin 31 25-34 pg Mean Corpuscular Hemoglobin Concent 33 32-36 g/dL Red Cell Distribution Width 12.2 10.0-14.5 % Platelet Count 254 130-400 10^3/uL Mean Platelet Volume 8.7 L 9.0-12.2 fL Immature Granulocyte % (Auto) 0 % Neutrophils (%) (Auto) 82 H 42-75 % Lymphocytes (%) (Auto) 9 L 12-44 % Monocytes (%) (Auto) 6 0-12 % Eosinophils (%) (Auto) 2 0-10 % Basophils (%) (Auto) 1 0-10 % Neutrophils # (Auto) 10.6 H 1.8-7.8 10^3/uL Lymphocytes # (Auto) 1.1 1.0-4.0 10^3/uL Monocytes # (Auto) 0.8 0.0-1.0 10^3/uL Eosinophils # (Auto) 0.3 0.0-0.3 10^3/uL Basophils # (Auto) 0.1 0.0-0.1 10^3/uL Immature Granulocyte # (Auto) 0.0 0.0-0.1 10^3/uL Sodium Level 138 135-145 MMOL/L Potassium Level 4.4 3.6-5.0 MMOL/L Chloride Level 102 98-107 MMOL/L Carbon Dioxide Level 23 21-32 MMOL/L Anion Gap 13 5-14 MMOL/L Blood Urea Nitrogen 11 7-18 MG/DL Creatinine 0.89 0.60-1.30 MG/DL Estimat Glomerular Filtration Rate 95 BUN/Creatinine Ratio 12 Glucose Level 104 70-105 MG/DL Calcium Level 9.5 8.5-10.1 MG/DL Corrected Calcium 9.1 8.5-10.1 MG/DL Total Bilirubin 0.5 0.1-1.0 MG/DL Aspartate Amino Transf (AST/SGOT) 28 5-34 U/L Alanine Aminotransferase (ALT/SGPT) 54 0-55 U/L Alkaline Phosphatase 70 40-136 U/L Total Protein 8.1 6.4-8.2 GM/DL Albumin 4.5 3.2-4.5 GM/DL Lipase 78 8-78 U/L My Orders Orders - EFRAÍN LEON MD Ua Culture If Indicated (05/12/23 10:02) Urine Bedside (05/12/23 10:02) Comprehensive Metabolic Panel (05/12/23 10:12) Lipase (05/12/23 10:12) Ed Iv/Invasive Line Start (05/12/23 10:12) Cbc With Automated Diff (05/12/23 10:12) Ct Abdomen/Pelvis W (05/12/23 10:12) Ns Iv 1000 Ml (Sodium Chloride 0.9%) (05/12/23 10:12) Ondansetron Injection (Zofran Injectio (05/12/23 10:12) Ketorolac Injection (Ketorolac Injection (05/12/23 10:12) Iohexol Injection (Omnipaque 350 Mg/Ml 1 (05/12/23 10:30) Received Contrast (Hold Metformin- Contr (05/12/23 10:30) Ns (Ivpb) 100 Ml (Sodium Chloride 0.9% 1 (05/12/23 10:30) Metoclopramide Injection (Reglan Injecti (05/12/23 11:28) Diphenhydramine Injection (Diphenhydram (05/12/23 11:28) Medications Given in ED Current Medications Medications Dose Ordered Sig/Miguel Route Start Time Stop Time Status Last Admin Dose Admin Iohexol 100 ml ONCE ONCE IV 05/12/23 10:30 05/12/23 10:31 DC 05/12/23 10:44 100 ML Sodium Chloride 100 ml ONCE ONCE IV 05/12/23 10:30 05/12/23 10:31 DC 05/12/23 10:44 80 ML Vital Signs/I&O 05/12/23 10:14 Temp 36.8 Pulse 108 Resp 16 B/P (MAP) 137/32 (67) Pulse Ox 100 O2 Delivery Room Air Progress Progress Note #1: Progress Note Potential diagnosis of colitis, diverticulitis, pyelonephritis, cystitis, ovarian cyst, gastroenteritis. Establish peripheral IV access and send labs for complete blood count, comprehensive metabolic profile, lipase, urinalysis, bedside urine test. Administer normal saline 1 L IV fluid bolus for hydration, Toradol 15 mg IV for pain, Zofran 4 mg IV for nausea and vomiting. Obtain a CT scan of the abdomen and pelvis with IV contrast to further evaluate her recurrent and chronic pain. Progress Note #2: Time: 10:54 Progress Note Labs show mild elevation of the white blood cell count to 12.6. The comprehensive metabolic profile did not show any acute electrolyte abnormalities. Her lipase was negative for pancreatitis. Her urinalysis was also negative for infection as she had a specific gravity of 1.010 and no nitrites or leukocyte Estrace. She did have a large number of epithelial cells to indicate contaminated specimen. On my personal review and interpretation of the CT scan of the abdomen pelvis with IV contrast I did not appreciate any acute abnormality. Progress Note #3: Time: 11:21 Progress Note I reviewed the radiologist report on the CT scan of the abdomen pelvis with IV contrast. They did not appreciate any acute process. She did have some motion artifact but they did not feel there was any findings for appendicitis or colitis or diverticulitis. She was requesting something additional for nausea and pain. Will try giving a dose of Reglan and try some Bentyl for abdominal pain and cramping. Encouraged follow-up with the clinic and she may need to have colonoscopy or additional testing beyond what is available in the emergency department to further evaluate her chronic issues since she had her gallbladder removed. When reviewing the findings with the patient she states that he did have a colonoscopy in June but did not find anything. She states that she had previously been on Bentyl prior to her gallbladder removal. She did not feel it was helpful at the time. Encouraged to try the medicine again and see if it any better now. Discharged on a few Reglan 5 mg p.o. 3 times daily x3 days and Bentyl 10 mg p.o. 4 times daily as needed abdominal pain. Patient reports that she did not have any significant improvement in her pain prior to discharge. Will defer further work-up with the clinic. Will avoid prescribing narcotics at this point since we did not find any severe findings on her CT scan and labs. I did not want to cause her to get constipated or have pain secondary to the narcotic. 1208 pharmacy called back with patient having Latuda as a chronic medication the metoclopramide would be contraindicated. It could cause extraparametal sy mptoms. We will change to Zofran ODT 4 mg p.o. every 6 hours as needed for nausea and vomiting. Diagnostic Imaging Diagonstic Imaging: CT Plain Films/CT/US/NM/MRI: abdomen, pelvis Comments [facility] [place], [place] NAME: ZAIN GOMEZ [employer] REC#: [id number] PT STATUS: REG ER : 2001 PHYSICIAN: EFRAÍN LEON MD ADMIT DATE: 05/12/23/ER FS Draft Date of Exam:05/12/23 CT ABDOMEN/PELVIS W PROCEDURE: CT abdomen and pelvis with contrast. TECHNIQUE: Multiple contiguous axial images were obtained through the abdomen and pelvis after administration of intravenous contrast. Auto Exposure Controls were utilized during the CT exam to meet ALARA standards for radiation dose reduction. All CT scans use one or more of the following dose optimizing techniques: automated exposure control, MA and/or KvP adjustment based on patient size and exam type or iterative reconstruction. INDICATION: 22-year-old female, right lower quadrant pain since earlier in the morning. CORRELATION STUDY: 05/07/2022. FINDINGS: Examination is compromised by motion artifact. LOWER THORAX: Clear. Small 2.1 x 2.2 cm cyst medial right lung base, unchanged. Small esophageal hernia. LIVER: Enlarged at 21.2 cm with moderate steatosis. GALLBLADDER: Cholecystectomy. SPLEEN: Unremarkable. PANCREAS: Slight peripancreatic haziness, likely largely attributed to motion artifact. ADRENAL GLANDS: Unremarkable. KIDNEYS: Normal configuration. No calcification or obstruction. ABDOMINAL AORTA: Unremarkable, nonaneurysmal. A few shotty aortocaval lymph nodes. Also a few scattered mesenteric lymph nodes. GASTROINTESTINAL TRACT: No definitive gastrointestinal tract obstruction. Limitations in visualization of the appendix, likely attributed to motion artifact. No findings to suggest acute appendicitis. URINARY BLADDER: Unremarkable. REPRODUCTIVE: Uterus and adnexa unremarkable. OSSEOUS STRUCTURES: Nonacute pars articularis defect L4. OTHER: None. IMPRESSION: 1. Limitations with motion artifact demonstrates no acute abnormality about the abdomen and/or pelvis. 2. Peripancreatic haziness likely attributed to motion artifact. However, if indicated, correlation with pancreatic laboratory enzymes recommended. 3. Hepatomegaly with steatosis. Dictated on workstation # [id number] Dict: 05/12/23 1054 Trans: 05/12/23 1109 [id number] Interpreted by: MARGARITA YIP DO Electronically signed by: Reviewed: Reviewed by Me Departure Impression Primary Impression: Right flank pain Additional Impression: Nausea vomiting and diarrhea Disposition: 01 HOME, SELF-CARE Condition: Stable Departure-Patient Inst. Decision time for Depature: 11:25 Referrals: FIORELLA SYED APRN (PCP) Primary Care Physician [facility] (Family) Primary Care Physician Patient Instructions: Flank Pain ED, Nausea and Vomiting, Adult ED, Diarrhea, Adult ED, Abdominal Pain, Adult ED Add. Discharge Instructions: Try using the Reglan or metoclopramide to help with nausea and vomiting. Take the dicyclomine or Bentyl to help with abdominal pain, cramping, spasms. Stay well-hydrated and drink plenty of fluids. Check back with the clinic and primary care provider as you may need to have a colonoscopy or additional testing beyond what is available through the emergency department to look into your recurrent nausea vomiting and diarrhea as well as episodes of pain. All discharge instructions reviewed with patient and/or family. Voiced understanding. Scripts Dicyclomine HCl (Dicyclomine HCl) 10 Mg Capsule 10 MG PO Q6H PRN for ABDOMINAL PAIN for 5 Days, #20 CAP 0 Refills Prov: EFRAÍN LEON MD 05/12/23 Metoclopramide HCl (Metoclopramide HCl) 5 Mg Tablet 5 MG PO Q8H PRN for NAUSEA/VOMITING for 3 Days, #9 TAB 0 Refills Prov: EFRAÍN LEON MD 05/12/23 Work/School Note: Work Release Form Date Seen in the Emergency Department: May 12, 2023 Return to Work: May 14, 2023 Restrictions: Return-No Vomiting(24hrs) EFRAÍN LEON MD May 12, 2023 10:19
[2023-05-12 10:20] LABS: BACTERIA,URINE TRACE /HPF; RBC,URINE 0-2 /HPF; SQUAMOUS EPITHELIAL CELL,UR 25-50 /HPF
[2023-05-12] MEDS ORDERED: NS 100 ML (IVPB) BAG IV ONE (10:30)
[2023-05-12] MEDS ORDERED: IOHEXOL 350 MG/ML 100 ML (OMNIPAQUE 350) VIAL IV ONE (10:30)
[2023-05-12] MEDS ORDERED: HOLD METFORMIN - RECEIVED CONTRAST 20 ML VIAL IV SCH (10:30)
[2023-05-12 10:36] LABS: ALBUMIN 4.5 GM/DL (3.2-4.5); BILIRUBIN,TOTAL 0.5 MG/DL (0.1-1.0); CALCIUM 9.5 MG/DL (8.5-10.1); CREATININE SERUM 0.89 MG/DL (0.60-1.30); POTASSIUM 4.4 MMOL/L (3.6-5.0); TOTAL PROTEIN 8.1 GM/DL (6.4-8.2)
--- NOTE | 2023-05-12 11:11 | Diagnostic Imaging Report ---
PROCEDURE: CT abdomen and pelvis with contrast. TECHNIQUE: Multiple contiguous axial images were obtained through the abdomen and pelvis after administration of intravenous contrast. Auto Exposure Controls were utilized during the CT exam to meet ALARA standards for radiation dose reduction. All CT scans use one or more of the following dose optimizing techniques: automated exposure control, MA and/or KvP adjustment based on patient size and exam type or iterative reconstruction. INDICATION: 22-year-old female, right lower quadrant pain since earlier in the morning. CORRELATION STUDY: 05/07/2022. FINDINGS: Examination is compromised by motion artifact. LOWER THORAX: Clear. Small 2.1 x 2.2 cm cyst medial right lung base, unchanged. Small esophageal hernia. LIVER: Enlarged at 21.2 cm with moderate steatosis. GALLBLADDER: Cholecystectomy. SPLEEN: Unremarkable. PANCREAS: Slight peripancreatic haziness, likely largely attributed to motion artifact. ADRENAL GLANDS: Unremarkable. KIDNEYS: Normal configuration. No calcification or obstruction. ABDOMINAL AORTA: Unremarkable, nonaneurysmal. A few shotty aortocaval lymph nodes. Also a few scattered mesenteric lymph nodes. GASTROINTESTINAL TRACT: No definitive gastrointestinal tract obstruction. Limitations in visualization of the appendix, likely attributed to motion artifact. No findings to suggest acute appendicitis. URINARY BLADDER: Unremarkable. REPRODUCTIVE: Uterus and adnexa unremarkable. OSSEOUS STRUCTURES: Nonacute pars articularis defect L4. OTHER: None. IMPRESSION: 1. Limitations with motion artifact demonstrates no acute abnormality about the abdomen and/or pelvis. 2. Peripancreatic haziness likely attributed to motion artifact. However, if indicated, correlation with pancreatic laboratory enzymes recommended. 3. Hepatomegaly with steatosis. Dictated by: Dictated on workstation # [id number]
[2023-05-12] MEDS ORDERED: METO5TAB2 PO (11:27)
[2023-05-12] MEDS ORDERED: DICY10CA12 PO (11:27)
[2023-05-12] MEDS ORDERED: METOCLOPRAMIDE INJ 10 MG/2 ML IVP STA (11:28)
[2023-05-12] MEDS ORDERED: diphenhydrAMINE INJ 50 MG/ML VIAL IVP STA (11:28)
== END 2023-05-12 11:39 | disposition home or self-care (01) ==
LOC: EDUNIT# 09:58 → ER FS 09:59
DX: R10.31 Right lower quadrant pain (principal); R11.2 Nausea with vomiting, unspecified; R19.7 Diarrhea, unspecified; Z87.19 Personal history of other diseases of the digestive system; Z90.49 Acquired absence of other specified parts of digestive tract
CPT/HCPCS: 36415; 74177; 80053; 81000; 83690; 84703; 85025; Q9967